=== PATIENT | male | born 1940 | race Caucasian/White ===

== ENCOUNTER → 2016-10-27 | Outpatient (CLI) | payer OTHER ==
[~2016-10-27] MED LIST: AMLO10TA2 PO; ASPI1TAB PO; ATOR1TAB21 PO; COLA100C5 PO; D-CA1KIT XX; GABA-282 PO; LOSA25TA8 PO; OXYC1TAB16 PO
--- NOTE | 2016-10-27 08:45 | REP ---
CT LUMBAR SPINE WITHOUT CONTRAST: HISTORY: Right leg pain. COMPARISON: MR 09/30/2016. There is no disc bulge or herniation at the L1-2 level. The L1 nerves exit the neural foramina without compression. A diffuse disc bulge is present at the L2-3 level. There is minimal compression of the thecal sac. The L2 nerves exit the neural foramina without compression. A diffuse disc bulge is present at the L3-4 level. There is hypertrophy of the ligamenta flava and posterior articulating facets. These findings produce minimal central canal stenosis. The L3 nerves exit the neural foramina without compression. A diffuse disc bulge is present at the L4-5 level. There is hypertrophy of the ligamenta flava and posterior articulating facets. These findings produce mild central canal stenosis. The L4 nerves exit the neural foramina without compression. A diffuse disc bulge and mild size right paracentral disc extrusion are present at the L5-S1 level. There is inferior migration of disc material. There is mild compression of the thecal sac and right S1 nerve as it exits the thecal sac and in the right S1 lateral recess. There are 2 mm of retrolisthesis of L5 on S1. There is hypertrophy of the posterior articulating facets. There is compression of the left L5 nerve in the neural foramen. The right L5 nerve exits the neural foramen without compression. The L4-5 and L5-S1 intervertebral discs are decreased in height. Vacuum phenomenon is present. These findings are consistent with disc degeneration. IMPRESSION: 1. Diffuse disc bulge at the L2-3 level with minimal thecal sac compression. 2. Minimal central canal stenosis at the L3-4 level secondary to disc bulge, ligamentous and facet hypertrophy. 3. Mild central canal stenosis at the L4-5 level secondary to disc bulge, ligamentous and facet hypertrophy. 4. Diffuse disc bulge and mild size right paracentral disc extrusion at the L5-S1 level with mild compression of the thecal sac and right S1 nerve as it exits the thecal sac and in the right S1 lateral recess. There is compression of the left L5 nerve in the neural foramen. Signed by Ming Goode MD 10/27/2016 08:56 A
== END ==
LOC: M RAD 07:06 → M ICU 10-28 21:09 → M RAD 10-28 21:09
PROVIDERS: ATTEND Neurological Surgery
DX: M79.604 Pain in right leg (principal); M54.16 Radiculopathy, lumbar region; M51.26 Other intervertebral disc displacement, lumbar region; M51.27 Other intervertebral disc displacement, lumbosacral region; M12.88 Other specific arthropathies, not elsewhere classified, other specified site

== ENCOUNTER 2016-10-28 06:20 | Inpatient (IN) | payer OTHER, MEDICARE ==
[2016-10-28] VITALS (9 sets, daily range): BP systolic 166–197; BP diastolic 88–106; O2SAT 95
[~2016-10-28] VITALS: Ht 175.3 cm; Wt 90.6 kg
[~2016-10-28 06:20] MED LIST changes: -AMLO10TA2 PO; -COLA100C5 PO; -D-CA1KIT XX
[2016-10-28] MEDS ORDERED: fentaNYL 250 MCG/5 ML INJECTION (J3010) As Ordered ONE (07:17)
[2016-10-28] MEDS ORDERED: PROPOFOL 200 MG/20 ML VIAL As Ordered ONE ×3 (07:17→18:19)
[2016-10-28] MEDS ORDERED: LIDOCAINE 2% INJ 100 MG/5 ML SDV (FOR ANES.) As Ordered ONE (07:17)
[2016-10-28] MEDS ORDERED: ROCURONIUM BROMIDE 50 MG/5 ML VIAL/SYRINGE As Ordered ONE ×2 (07:17→13:18)
[2016-10-28] MEDS ORDERED: MIDAZOLAM INJ 2 MG/2 ML VIAL (J2250) As Ordered ONE (07:18)
[2016-10-28] MEDS ORDERED: LR 1,000 ML IV ONE (07:45)
[2016-10-28] MEDS ORDERED: TRANEXAMIC ACID 100 MG/ML 10ML VIAL As Ordered ONE (07:58)
[2016-10-28] MEDS ORDERED: THROMBIN SOLN 20,000 UNITS KIT As Ordered ONE (07:58)
[2016-10-28] MEDS ORDERED: BACITRACIN PWD 50,000 UNITS VIAL As Ordered ONE ×3 (07:59→09:50)
[2016-10-28] MEDS ORDERED: HEPARIN SOD (PORCINE) 5000 UNITS/ML VIAL As Ordered ONE (07:59)
[2016-10-28] MEDS ORDERED: dexameTHASONE 4 MG/ML 1ML VIAL (J1100) As Ordered ONE ×2 (07:59→17:48)
[2016-10-28] MEDS ORDERED: ePHEDrine SULFATE 25 MG/5 ML(5MG/ML) SYRINGE As Ordered ONE (08:37)
[2016-10-28] MEDS ORDERED: GLYCOPYRROLATE INJ 0.2 MG/ML 2 ML VIAL As Ordered ONE ×2 (08:59→11:15)
[2016-10-28] MEDS ORDERED: PHENYLEPHRINE INJ 10MG/ML VIAL (J2370) As Ordered ONE (09:16)
[2016-10-28] MEDS ORDERED: ceFAZolin 1GM INJ (J0690) As Ordered ONE ×2 (09:50→17:42)
[2016-10-28] MEDS ORDERED: HYDROmorphone HCL 2 MG/ML 1ML VIAL (J1170) As Ordered ONE (11:15)
[2016-10-28] MEDS ORDERED: NEOSTIGMINE 1MG/ML 5 ML SYRINGE (J2710) As Ordered ONE (11:15)
[2016-10-28] MEDS ORDERED: REMIFENTANIL 1MG 3ML VIAL As Ordered ONE ×2 (11:31→15:52)
[2016-10-28] MEDS ORDERED: BUPIVACAINE LIPOSOME/PF 1.3% 20 ML VIAL (13.3MG/ML)(EXPAREL) As Ordered ONE (15:41)
[2016-10-28] MEDS ORDERED: BUPIVACAINE HCL 0.25% 30 ML VIAL As Ordered ONE (15:41)
[2016-10-28] MEDS ORDERED: PROPOFOL 500 MG/50 ML VIAL As Ordered ONE ×2 (16:32→17:29)
[2016-10-28] MEDS ORDERED: methylPREDNISolone SUSP 40 MG/ML (DEPO-medrol) VIAL (J1030) As Ordered ONE (17:46)
[2016-10-28] MEDS ORDERED: BACITRACIN OINT 30GM As Ordered ONE (18:50)
[2016-10-28] MEDS ORDERED: BACITRACIN OINT 30GM ONE (18:50)
[2016-10-28] MEDS ORDERED: ONDANSETRON 4MG/2ML VIAL (J2405) As Ordered ONE (18:50)
--- NOTE | 2016-10-28 19:51 | REP ---
C-ARM LUMBAR SPINE COMPLETE: 10/28/2016. Technique: Six views from intraoperative C-arm fluoroscopy provided to Dr. Masood coy off of the neurosurgery division are reviewed. Comparison: CT lumbar spine 10/27/2016. Findings: Pedicle screws and arch bars at L4, L5 and S1. Surgical drains overlie the posterior elements. Laminectomies at L4-L5 and L5-S1. Alignment essentially anatomic. Signed by Bin Hickman MD 10/29/2016 10:46 A
[2016-10-28] MEDS ORDERED: LR 1,000 ML IV SCH (20:00)
[2016-10-28] MEDS ORDERED: MEPERIDINE INJ 25 MG/ML VIAL (J2175) IV PRN (20:00)
[2016-10-28] MEDS ORDERED: ONDANSETRON 4MG/2ML VIAL (J2405) IV PRN (20:00)
[2016-10-28] MEDS ORDERED: METOCLOPRAMIDE INJ 10MG/2ML VIAL (J2765) IV PRN (20:00)
[2016-10-28] MEDS ORDERED: PERCOCET 5MG/325MG TAB PO PRN (20:00)
[2016-10-28] MEDS: fentaNYL 100 MCG/2 ML INJECTION (J3010) IV PRN ×4 (20:28→20:59)
[2016-10-28] MEDS ORDERED: LOSARTAN 25 MG TAB PO ONE (20:30)
--- NOTE | 2016-10-28 20:46 | CR.PDOC ---
[facility] Consultation Consultation DATE OF CONSULTATION: 10/28/2016 REFERRING PROVIDER: Dr. Hastings ATTENDING PHYSICIAN: Dr. Hastings REASON FOR CONSULTATION/CHIEF COMPLAINT: Presented to the hospital for an elective right lumbar decompression surgery with fusion of L5 and S1 Hospitalist team called for medical management; specifically hypertension HISTORY OF PRESENT ILLNESS: Patient is a 76 year old male with a PMHx of HTN, DLP, Testicular CA s/p chemotherapy and surgery (1997), and carotid endarterectomy (2007) who presented to [facility] for an elective right lumbar decompression surgery with L5-S1 fusion with Neurosurgery. Patients has provided details for his history. She has noted that the patient has been having right foot pain and right calf pain that was continuous and persistent for months. He received a workup for possible DVT as an outpatient and was negative. 3 weeks ago he was having back pain and had imaging completed. After this point he was advised to have a surgery performed by neurosurgery. Hospitalist team was consulted for medical management, specifically of his blood pressure. Patient was seen in the PACU after surgical procedure. He noted that he had some back pain, rated at a 3/10. No focal weakness of his extremities was noted. He notes that his blood pressure outside the hospital has been around 150-160s. Upon arrival to the hospital his blood pressure was 175/82, after the procedure was 190/105 and currently it is at 176/69. He has noted that he only takes Losartan for blood pressure control. Has not taken that medication today. He denies any chest pain, shortness of breath, cough, fever, chills, abdominal pain, nausea, vomiting, diarrhea, constipation or urinary symptoms. ALLERGIES: Please see below. HOME MEDICATIONS: Please see below. PAST MEDICAL HISTORY: Testicular Cancer (1987) s/p chemotherapy and surgery HTN DLP PAST SURGICAL HISTORY: Carotid Artery Stenosis s/p endarterectomy (2007) Bilateral cataract surgery (2015) FAMILY HISTORY: - Non-contributory - Strong family history of malignancy SOCIAL HISTORY: - Denies the use of illicit drugs; Drinks alcohol socially, Smokes cigars occasionally - Denies recent travel or sick contacts - Lives with for 51 years - Occupation; Retired maintenance REVIEW OF SYSTEMS: Constitutional: Denies weight loss, change in appetite, or recent trauma Eyes: No visual changes or eye pain Ears, Nose, Throat: Denies nose bleeds, or difficulty swallowing Cardiovascular: Denies chest pain, sweating, or orthopnea Respiratory: Denies cough, wheezing, or shortness of breath GI: Chuy nausea, vomiting, abdominal pain, diarrhea or constipation : Denies pain with urination or frequency Musculoskeletal: Denies joint pain or swelling Neuro / Psych: Denies muscle weakness or sensory loss Skin: No skin rashes noted All other review of systems negative; otherwise stated in history of present illness Screening: - Colonoscopy done 5-[address] [facility] was reported normal PHYSICAL EXAMINATION: - Vitals: BP 190/105, HR 99, RR 20, Sat 94%RA, Temp 97.5F - General: Lying in bed, No acute distress, Speaking in full sentences, Sleepy, AAOx3 - HEENT: NC, AT - CVS: RRR, +S1S2 - Lungs: Fair air entry bilaterally, No wheezing / rales / rhonchi appreciated - Abdomen: Soft, Non-distended, Non-tender, + Bowel sounds x 4 - Extremities: + PPx4, No lower extremity edema, No calf tenderness - Neuro: No focal motor or sensory deficit - Skin: No visible rashes LABORATORY DATA: Please see below. ASSESSMENT/PLAN: Elective right lumbar decompression surgery with fusion of L5 and S1 - Presented for elective procedure - Pain control and DVT prophylaxis by primary team HTN - Poorly controlled at this time, reports that he has not taken home med this morning - Has noted that his blood pressure as an outpatient has been in 160s - Will restart Losartan 25 (home dose) now; if still elevated will need to increase dose or add second agent - Will re-evaluate within 24 hours DLP - c/w Atorvastatin Testicular CA - Completed chemotherapy and surgery (1997) Carotid endarterectomy (2007) - No aspirin as per primary team DVT prophylaxis - At the discretion of primary team; has been put on SCDs only at this time Vital Signs/I&O Vital Signs Date Time Temp Pulse Resp B/P (MAP) Pulse Ox O2 Delivery O2 Flow Rate FiO2 10/28/16 19:55 84 20 190/105 (133) 99 Non-Rebreather 10 10/28/16 19:38 97.5 Allergies Coded Allergies: No Known Allergies (Unverified , 10/28/16) Home Medications Scheduled Aspirin (Aspirin 81) 81 Mg Tab, 81 MG PO DAILY, #30 (Reported) Atorvastatin Calcium (Atorvastatin Calcium) 20 Mg Tab, 20 MG PO DAILY, (Reported ) Gabapentin (Gabapentin) 300 Mg Cap, 300 MG PO TID, (Reported) Losartan Potassium (Losartan Potassium) 25 Mg Tab, 25 MG PO DAILY, (Reported) Scheduled PRN (Oxycodone/Acetaminophen 10-325 mg) 1 Tab Tab, 1 TAB PO Q8HP PRN for PAIN, ( Reported) DUSTIN TROY MD Oct 28, 2016 20:46
[2016-10-28] MEDS ORDERED: [UNRECOGNIZED DRUG - REMARK] XX SCH (21:00)
[2016-10-28] MEDS: ONDANSETRON 4MG/2ML VIAL (J2405) IV SCH (22:00)
[2016-10-28] MEDS: MORPHINE 4 MG/ML 1ML SYRINGE IV PRN (22:53)
[2016-10-28] MEDS: KCL 20MEQ in NS 1000ML 1,000 ML IV SCH (22:54)
[2016-10-28] MEDS: GABAPENTIN 300 MG CAP PO SCH (22:55)
[2016-10-29] VITALS (8 sets, daily range): BP systolic 144–178; BP diastolic 71–91
[2016-10-29] MEDS: ACETAMINOPHEN TAB 650MG DOSE (2X325MG) PO SCH ×5 (01:30→23:33)
[2016-10-29] MEDS: KCL 20MEQ in NS 1000ML 1,000 ML IV SCH (01:31)
[2016-10-29] MEDS: ceFAZolin SOD 1 GM in D5W MINI-BAG PLUS 50 ML IV SCH ×3 (01:31→18:01)
[2016-10-29 04:43] LABS: MEAN CORPUSCULAR HEMOGLOBIN 30.2 pg (27.0-33.0); MEAN CORPUSCULAR HGB CONC 32.9 g/dl (32.0-36.5); MEAN CORPUSCULAR VOLUME 91.8 fl (80.0-96.0); RED CELL DISTRIBUTION WIDTH 13.1 % (11.5-14.5); WHITE BLOOD COUNT 15.8 K/mm3 (4.0-10.0)
[2016-10-29 05:03] LABS: ALBUMIN 2.7 GM/DL (3.2-5.2); ALBUMIN/GLOBULIN RATIO 0.69 (1.00-1.93); BILIRUBIN,TOTAL 0.4 MG/DL (0.2-1.0); CALCIUM LEVEL 8.3 MG/DL (8.8-10.2); CREATININE FOR GFR 1.33 MG/DL (0.70-1.30); GLOMERULAR FILTRATION RATE 55.7 (>42); POTASSIUM SERUM 4.6 MEQ/L (3.5-5.1); TOTAL PROTEIN 6.6 GM/DL (6.4-8.2)
[2016-10-29] MEDS: ONDANSETRON 4MG/2ML VIAL (J2405) IV SCH ×3 (06:00→21:40)
[2016-10-29] MEDS: MORPHINE 4 MG/ML 1ML SYRINGE IV PRN (08:07)
[2016-10-29] MEDS: hydrALAZINE INJ 20 MG/ML VIAL IV SCH ×3 (08:54→23:31)
[2016-10-29] MEDS: amLODIPine 10 MG TAB PO SCH (10:03)
[2016-10-29] MEDS: DOCUSATE SODIUM 100 MG CAP PO SCH ×2 (10:03→21:39)
[2016-10-29] MEDS: GABAPENTIN 300 MG CAP PO SCH ×3 (10:03→21:39)
[2016-10-29] MEDS: LOSARTAN 25 MG TAB PO SCH (10:04)
[2016-10-29] MEDS: ATORVASTATIN 20 MG TAB PO SCH (10:04)
--- NOTE | 2016-10-29 10:09 | REP ---
CT LUMBAR SPINE WITHOUT CONTRAST: HISTORY: Decompression. COMPARISON: 10/27/2016. There is no disc bulge or herniation at the L1-2 level. The L1 nerves exit the neural foramina without compression. A diffuse disc bulge is present at the L2-3 level. There is minimal compression of the thecal sac. The L2 nerves exit the neural foramina without compression. A diffuse disc bulge is present at the L3-4 level. There is minimal compression of the thecal sac. There is hypertrophy of the posterior articulating facets. The L3 nerves exit the neural foramina without compression. The patient is status post laminectomy and partial facetectomy. The patient is status post L4-S1 anterior and posterior spinal fusion and L4-5 laminectomy and partial facetectomy. Bone graft material is present anteriorly and metal comfort, pedicle screws and bone graft material posteriorly. A diffuse disc bulge is present at the L4-5 level. There is minimal compression of the thecal sac. There is hypertrophy of the posterior articulating facets. The L4 nerves exit the neural foramina without compression. A diffuse disc bulge is present at the L5-S1 level. The previously noted right paracentral disc extrusion is not seen. There is minimal compression of the thecal sac. There is hypertrophy of the posterior articulating facets. There is compression of the left L5 nerve in the neural foramen. The right L5 nerve exits the neural foramen without compression. The L4-5 and L5-S1 intervertebral discs are decreased in height consistent with disc degeneration. There is no subluxation. Drainage tubing and a small amount of subcutaneous air are present at the laminectomy site and in the posterior paravertebral soft tissue. IMPRESSION: 1. Diffuse disc bulges at the L2-3 and L3-4 levels with minimal thecal sac compression. 2. The patient is status post L4-S1 anterior and posterior spinal fusion and L3-5 laminectomy and partial facetectomy. There is anatomic alignment of the lumbar spine. Signed by Ming Goode MD 10/29/2016 10:11 A
[2016-10-29] MEDS: PERCOCET 5MG/325MG TAB PO PRN (10:54)
--- NOTE | 2016-10-29 11:32 | IPNPDOC ---
Subjective Date Seen The patient was seen on 10/29/16. Subjective Chief Complaint/HPI Patient seen and examined at the bedside. States that his surgery went relatively well, but does note that he has some pain this morning and has yet to receive his pain medications. Denies any acute complaints otherwise. Objective Physical Examination General Exam: Positive: Alert, Cooperative, No Acute Distress ENT Exam: Positive: Atraumatic, Mucous membr. moist/pink Neck Exam: Negative: JVD Chest Exam: Positive: Clear to auscultation, Normal air movement Heart Exam: Positive: Rate Normal, Normal S1, Normal S2 Abdomen Exam: Positive: Soft, Negative: Tenderness Extremity Exam: Positive: Other (5 out of 5 strength on flexion and extension at the shoulder, elbow, knee, and ankle joints. Sensation intact in extremities. ) Psych Exam: Positive: Oriented x 3 Assessment /Plan Plan/VTE VTE Prophylaxis Ordered?: Yes Plan Rght lumbar decompression surgery with fusion of L5 and S1 POD #1 DVT prophylaxis by primary team HTN Patient noted to be hypertensive once again this morning May be a combination of pain, and uncontrolled underlying B/P We have added Norvasc 10mg daily, and IV Hydralazine prn Continue Losartan 25 milligrams daily We will cont to monitor B/P readings and adjust regimen accordingly Possible Underlying CKD? Serum Creatinine here noted to be 1.33 (Baseline unknown) Will obtain records from PCP History of neuropathy Continue gabapentin DLP Cont Atorvastatin Testicular CA Status post chemotherapy and surgery in (1997) Carotid endarterectomy (2007) No aspirin as per primary team DVT prophylaxis Currently on SCDs Anticoagulation for DVT prophylaxis as per primary team VS, I&O, 24H, Fishbone Vital Signs/I&O Vital Signs Date Time Temp Pulse Resp B/P (MAP) Pulse Ox O2 Delivery O2 Flow Rate FiO2 10/29/16 10:54 82 18 160/78 Room Air 10/29/16 08:20 92 10/29/16 08:07 98.7 10/29/16 00:00 2.0 I&O- Last 24 Hours up to 6 AM 10/29/16 05:59 Intake Total 5000 ml Output Total 3165 ml Balance 1835 ml Laboratory Data 24H LABS Laboratory Tests 2 10/29/16 04:17: Anion Gap 7L, Glomerular Filtration Rate 55.7, Blood Urea Nitrogen 19H, Creatinine 1.33H, Sodium Level 139, Potassium Level 4.6, Chloride Level 106, Carbon Dioxide Level 26, Calcium Level 8.3L, Aspartate Amino Transf (AST/SGOT) 40H, Alanine Aminotransferase (ALT/SGPT) 18, Alkaline Phosphatase 47, Total Bilirubin 0.4, Total Protein 6.6, Albumin 2.7L, Albumin/Globulin Ratio 0.69L CBC/BMP Laboratory Tests 10/29/16 04:17 Red Blood Count 4.86, Mean Corpuscular Volume 91.8, Mean Corpuscular Hemoglobin 30.2, Mean Corpuscular Hemoglobin Concent 32.9, Red Cell Distribution Width 13.1 , Calcium Level 8.3 L, Aspartate Amino Transf (AST/SGOT) 40 H, Alanine Aminotransferase (ALT/SGPT) 18, Alkaline Phosphatase 47, Total Bilirubin 0.4, Total Protein 6.6, Albumin 2.7 L ROBER DASILVA MD Oct 29, 2016 11:32
--- NOTE | 2016-10-29 20:51 | ROOPDOC ---
[facility] Report Of Operation Report of Operation DATE OF SURGERY: 10/28/2016 SURGEON: Dr. Jorge Alberto Hastings MODELING MANAGER: Dr. Mai Davison PREOPERATIVE DIAGNOSIS: Intractable right leg pain, L4-L5-S1 Degenerative disc disease, bilateral multilevel facet hypertrophy and L4-L5-S1 bilateral foraminal stenosis POSTOPERATIVE DIAGNOSIS: Same PROCEDURE PERFORMED: 1. Laminactomy L4, L5, S1. 2. Bilateral complete facetectomy L4-5 and L5-S1 for posterolateral decompression on right and left side 3. Instrumented posterior spinal fusion L4 through S1 with Medicrea polyaxial titanium pedicle screws. 4. Total disc excision with end plate for fusion at L5-S1 and L4-5. 5. Intervertebral disc replacement L5-S1 and L4-[address] image-guided, computer assisted stereotactic L4-L5-S1 pedicle screws placement and posterior instrumentation with rods. 7. Onlay bone graft for posterolateral fusion, use of allograft/autograft bone. 8. lntraoperative use of C-arm fluoroscopy. ANESTHESIA: GETA + Local. ESTIMATED BLOOD LOSS: 600 cc. FINDINGS : Severe foraminal stenosis on right side at L5 and S1 level with dilated epidural veins DRAINS: LINDA drain x 3 COMPLICATIONS: None. DISPOSITION: Stable to the PACU. INDICATIONS FOR THE PROCEDURE HISTORY: Ms. Solano is a 55 y/o female with past medical history of obstructive sleep apnea, dyslipidemia, asthma, constipation who presents to the emergency department today with a two-week history of blurred vision and increasing bitemporal headache, that is worsened with bright lights and standing up, she prefers to be laying down flat in bed. The patient has undergone spine surgery in June 2016 for decompression of L4-L5, removal of interspinous fixation device, and undoing fusion at L4-L5, lysis of scar tissue and partial facet arthrotomies on the right from L3-L4, L4-5 and L5-S1. The patient declare also a discharge of clear transparent fluid from her postoperative scar. 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 Given the progression of the symptoms and the risk of CSF infection, the patient decided to proceed with reoperation, requiring laminectomy and decompression of the L4-5, dural tear repair and instrumented fusion . SURGICAL RISKS: The patient and his family were well apprised of all objectives, benefits, risks and potential complications of the procedure, including but not limited to : worsening of current status, the possible need for further procedures, the risk of infection, headaches, CSF leak, possible spinal nerve injury resulting in paralysis, infection, injury to major vessels causing hemorrhage, stroke, loss of language function, coma and even . No assurance was given whether symptoms would improve following the procedure. The surgery is technically difficult procedure and despite the significant discomfort for the patient and the best effort of the physician, the surgery may be unsuccessful or may need to be aborted. Informed consent was obtained and secured in the chart after the patient and family voiced understanding of these risks and decided to proceed with the operation. DESCRIPTION OF THE PROCEDURE The patient was transferred to the operating room. He was given preoperative prophylactic IV antibiotics. ANESTHESIA: The patient was sedated and intubated without difficulty by the anesthesia service. He underwent vascular cannulization in accordance with Anesthesia protocol. Eyes were taped shut after ointment was applied to prevent corneal abrasion. A Bates catheter was inserted. POSITIONING: The patient was turned into the prone position on the Juliano table. Arms were positioned 90/90 on the arm boards. Bolsters were used to support the chest and pelvis and pillows for hips, knees and ankles. All pressure points were carefully padded. A Bg Hugger was placed over the upper body to maintain control of core body temperature. The patient underwent a 70% alcohol prep. X-ray was used to delineate the extend of excision. OPERATIVE TECHNIQUE: The patient was prepped and draped in the standard sterile fashion. The skin was subsequently opened sharply with a # 15 scalpel blade and posterior midline incision was created. Electrocautery was used for hemostasis and soft tissue was dissected down to fascia. Fascia was incised longitudinally on either side of the spinous processes and subperiosteal paraspinal muscle dissection was carried out, exposing from L4 to S2 down superiorly and inferiorly in the midline to expose supraspinous ligament and laminas. Hemostasis was achieved. Self-retaining retractors were then inserted. Stereotactic CT scan of L-spine was done prior to the surgery and the images were transferred to the neuronavigational system. Next, three-dimensional images were reconstructed. The patient underwent co-registration of the preoperative stereotactic CT with her surface landmarks by FluroNav technique with use of C-arm fluoroscopy with Doculynx tracker. Accuracy was within 2mm. Next laminectomies were performed, removing all of spinal process and medial third of the lamina of L4, L5 and S1. The decompression was carried out in a posterolateral fashion on both right and left sides at L4-5 and L5-S1. At each side and level of posterolateral decompression all parts of the following structures were removed: lateral 2/3 of the lamina, inferior articulate process, superior articulate process and a portion of the base of the pedicle. Decompressive facetectomy of the neural foramena L4-5 and L5-S1on both the left and right side was performed with ultrasound bone dissector to relieve nerve root compression. A note was made of bluish color, congested L5 and S1 root on right after foraminal decompression. Removed bone has been harvested, cleaned from ligaments and scar and milled with allograft. The neuronavigational probe was utilized to plan spray pilot holes and screws trajectories. The L3-S1 vertebrae were again confirmed with fluoroscopy. At the L4, L5, S1 level bilaterally, under computer image guidance system, spray pilot holes were drilled and the straight pedicle probe passed into the pedicles and body of L4, L5 and S1 vertebrae bilaterally and the resulting hole checked with a flexible pedicle sound to ensure a bony rim around the hole. Using an inside out technique with direct visualization of the medical and inferomedial borders of the pedicle, an instrumented posterior spinal fusion was performed from L4 to S1. A sharp awl was placed into the remaining of the base of pedicle and awls were sequentualy passed through the pedicle and into the body. Each hole was probed, sized, tapped and deemed to be intact. Medicrea polyaxial screw was placed into the pedicles and vertebral bodies under neuronavigation guidance bilaterally at L4, L5 and S1 vertebrae. Proper placement and trajectory were confirmed with intraoperative fluoroscopic x-ray. All were deemed to be acceptable. Next using an axillary approach between the exiting and traversing nerve roots , a total disc excisions with end plate for fusion were performed at L4-5 and L5 -S1. At both L4-5 and L5-S1, bipolar electrocautery was used to control epidural bleeding and the disc was exposed. Iatrogenic annulotomy was created. Using K2M set disc nevaeh were inserted sequentially and to the point where there was end plate. Intervertebral disk replacement was performed at L4-5 and L5-S1. At L4-5 and L5-S1 morcellized cancellous allograft was inserted using impaction grafting technique. We measured the inter-screw distance and used two prebend 5.5 mm Medicrea rods and placed the rods into the polyaxial screws from L4- S1. All set screws were final tightened. The wound was copiously irrigated with antibiotic saline solution. The high- speed pneumatic drill was utilized to decorticate the bone laterally for lateral arthrodesis. These recesses were filled with auto and allograft bone chips as onlay graft in decorticated gutters for posterolateral fusion. Paraspinal muscles and subcutaneous tissue of the wound were infiltrated by 20 ml of Exparel. 3 drains was placed and brought out through a separate stab incision. The paraspinal muscles were subsequently closed utilizing interrupted 0.0 polyglactin synthetic absorbable suture (Vicryl). Fascia was closed by 0.0 Stratafix surure. Subcutaneous tissue and skin was approximated with 2.0 Stratafix suture. The skin was then closed with Ethicon wound closure system. Drains were secured to skin by 2.0 silk suture. The drain incision was covered by Bacitracine ointment and was dressed in a clean dry dressing. All sponge counts, needle counts and instrument counts were correct at the end of the case times two. The patient tolerated the procedure well, without any complications and was transferred in stable condition to the recovery room. JORGE ALBERTO HASTINGS MD Oct 29, 2016 20:51
[2016-10-29] MEDS ORDERED: CALCIUM CARBONATE 500 MG CHEW U/D PO PRN (21:30)
[2016-10-29] MEDS: zolPIDEM TARTRATE 5 MG TAB PO PRN (23:31)
[2016-10-30] VITALS: BP 166/86
[2016-10-30 04:00] VITALS: BP 150/67
[2016-10-30 04:52] LABS: MEAN CORPUSCULAR HGB CONC 33.2 g/dl (32.0-36.5); MEAN CORPUSCULAR VOLUME 93.2 fl (80.0-96.0); RED CELL DISTRIBUTION WIDTH 13.1 % (11.5-14.5); WHITE BLOOD COUNT 12.4 K/mm3 (4.0-10.0)
[2016-10-30] MEDS: ONDANSETRON 4MG/2ML VIAL (J2405) IV SCH ×2 (05:05→14:00)
[2016-10-30] MEDS: ACETAMINOPHEN TAB 650MG DOSE (2X325MG) PO SCH ×3 (05:05→17:49)
[2016-10-30 05:12] LABS: ALBUMIN 2.6 GM/DL (3.2-5.2); ALBUMIN/GLOBULIN RATIO 0.74 (1.00-1.93); ALKALINE PHOSPHATASE 43 U/L (45-117); ALT/SGPT 17 U/L (12-78); ANION GAP 3 MEQ/L (8-16); AST/SGOT 55 U/L (15-37); BILIRUBIN,TOTAL 0.4 MG/DL (0.2-1.0); BLOOD UREA NITROGEN 19 MG/DL (7-18); CALCIUM LEVEL 8.4 MG/DL (8.8-10.2); CARBON DIOXIDE LEVEL 31 MEQ/L (21-32); CHLORIDE LEVEL 105 MEQ/L (98-107); GLOMERULAR FILTRATION RATE > 60.0 (>42); GLUCOSE, FASTING 120 MG/DL (83-110); POTASSIUM SERUM 4.2 MEQ/L (3.5-5.1); SODIUM LEVEL 139 MEQ/L (136-145); TOTAL PROTEIN 6.1 GM/DL (6.4-8.2)
[2016-10-30 08:00] VITALS: BP 142/72
[2016-10-30] MEDS: hydrALAZINE INJ 20 MG/ML VIAL IV SCH (08:00)
[2016-10-30] MEDS ORDERED: GLUCAGON FOR INJ 1 MG VIAL (J1610) SC PRN (08:45)
[2016-10-30] MEDS ORDERED: GLUCOSE 4 GM CHEW TABLET PO PRN (08:45)
[2016-10-30] MEDS ORDERED: MOM 30ML SUSPENSION UDC PO PRN (08:45)
[2016-10-30] MEDS ORDERED: DEXTROSE 50% 50 ML SYRINGE IV PRN (08:45)
[2016-10-30] MEDS: LOSARTAN 25 MG TAB PO SCH (09:56)
[2016-10-30] MEDS: ATORVASTATIN 20 MG TAB PO SCH (09:56)
[2016-10-30] MEDS: amLODIPine 10 MG TAB PO SCH (09:56)
[2016-10-30] MEDS: DOCUSATE SODIUM 100 MG CAP PO SCH ×2 (09:56→20:05)
[2016-10-30] MEDS: GABAPENTIN 300 MG CAP PO SCH ×3 (09:57→20:03)
[2016-10-30 12:00] VITALS: BP 142/69
[2016-10-30] MEDS: PERCOCET 5MG/325MG TAB PO PRN ×2 (12:26→20:05)
[2016-10-30] MEDS: HumaLOG INSULIN (NovoLOG) PER UNIT SC SCH ×3 (12:39→20:06)
--- NOTE | 2016-10-30 13:39 | IPNPDOC ---
Text Note Date of Service The patient was seen on 10/30/16. NOTE Subjective: Patient is a 76 year old male with a PMHx of HTN, DLP, Testicular CA s/p chemotherapy and surgery (1997), and carotid endarterectomy (2007) who presented to [facility] for an elective right lumbar decompression surgery with L5-S1 fusion with Neurosurgery. Hospitalist team was called for medical managment of his hypertension. I was called today by Dr. Hastings about the patient's uncontrolled blood sugar of 120 and suggested having glucose checks and starting insulin. Patient was seen and examined at the bedside. Currently he has no complaints. Objective: Vitals (See below) General: Lying in bed, no acute distress, comfortable, AAOx3 HEENT: NC, AT CVS: RRR, +S1S2 Lungs: Fair air entry b/l, -w/r/r Abdomen: Soft, ND, NT, +BSx4 Extremities: - Edema, - Calf tenderness Assessment and plan: 1. Elective right lumbar decompression surgery with fusion of L5 and S1 - POD#2 - Presented for elective procedure - Pain control and DVT prophylaxis by primary team 2. HTN - BP well controlled at this time - c/w Amlodipine 10 and Losartan 25 3. New onset DM2 - A1c of 6.6% - Advised consistent carbohydrate diet - Will start ISS while inpatient - Will recommend life style changes upon discharge 4. CKD3 - Cr currently at 1.2; down from 1.3 from admission - Cr baseline of 1.2 based on outpatient records 5. DLP - c/w Atorvastatin 6. Testicular CA - Completed chemotherapy and surgery (1997) 7. Carotid endarterectomy (2007) - No aspirin as per primary team 8. DVT prophylaxis - c/w SCDs; anticoagulation by primary team VS,Alejandrobone, I+O VS, Fishbone, I+O Laboratory Tests 10/30/16 04:18 Red Blood Count 4.24 L, Mean Corpuscular Volume 93.2, Mean Corpuscular Hemoglobin 31.0, Mean Corpuscular Hemoglobin Concent 33.2, Red Cell Distribution Width 13.1, Calcium Level 8.4 L, Aspartate Amino Transf (AST/SGOT) 55 H, Alanine Aminotransferase (ALT/SGPT) 17, Alkaline Phosphatase 43 L, Total Bilirubin 0.4, Total Protein 6.1 L, Albumin 2.6 L Vital Signs Date Time Temp Pulse Resp B/P (MAP) Pulse Ox O2 Delivery O2 Flow Rate FiO2 10/30/16 12:56 20 10/30/16 09:56 89 142/72 10/30/16 08:00 98.2 94 Room Air 10/29/16 00:00 2.0 I&O- Last 24 Hours up to 6 AM 10/30/16 06:00 Intake Total 3166 ml Output Total 3715 ml Balance -549 ml DUSTIN TROY MD Oct 30, 2016 13:39
[2016-10-30] MEDS ORDERED: SLF 3 ML SYR IV PRN (14:30)
[2016-10-30] MEDS: SLF 3 ML SYR IV SCH (20:06)
[2016-10-30 22:00] VITALS: BP 150/73
[2016-10-31] MEDS: PERCOCET 5MG/325MG TAB PO PRN ×3 (00:46→18:50)
[2016-10-31] MEDS: MORPHINE 4 MG/ML 1ML SYRINGE IV PRN (03:55)
[2016-10-31] MEDS: SLF 3 ML SYR IV SCH ×4 (03:56→20:43)
[2016-10-31 06:00] VITALS: BP 129/67
[2016-10-31 06:56] LABS: MEAN CORPUSCULAR HEMOGLOBIN 31.2 pg (27.0-33.0); RED CELL DISTRIBUTION WIDTH 13.2 % (11.5-14.5); WHITE BLOOD COUNT 8.3 K/mm3 (4.0-10.0)
[2016-10-31 07:12] LABS: ALBUMIN 2.7 GM/DL (3.2-5.2); ALBUMIN/GLOBULIN RATIO 0.87 (1.00-1.93); ALKALINE PHOSPHATASE 46 U/L (45-117); ALT/SGPT 20 U/L (12-78); ANION GAP 7 MEQ/L (8-16); AST/SGOT 53 U/L (15-37); BILIRUBIN,TOTAL 0.5 MG/DL (0.2-1.0); BLOOD UREA NITROGEN 16 MG/DL (7-18); CARBON DIOXIDE LEVEL 28 MEQ/L (21-32); CHLORIDE LEVEL 104 MEQ/L (98-107); CREATININE FOR GFR 1.07 MG/DL (0.70-1.30); GLOMERULAR FILTRATION RATE > 60.0 (>42); GLUCOSE, FASTING 123 MG/DL (83-110); POTASSIUM SERUM 3.9 MEQ/L (3.5-5.1); SODIUM LEVEL 139 MEQ/L (136-145); TOTAL PROTEIN 5.8 GM/DL (6.4-8.2)
[2016-10-31] MEDS: amLODIPine 10 MG TAB PO SCH (09:04)
[2016-10-31] MEDS: GABAPENTIN 300 MG CAP PO SCH ×3 (09:04→20:40)
[2016-10-31] MEDS: ATORVASTATIN 20 MG TAB PO SCH (09:04)
[2016-10-31] MEDS: LOSARTAN 25 MG TAB PO SCH (09:05)
[2016-10-31] MEDS: HumaLOG INSULIN (NovoLOG) PER UNIT SC SCH ×4 (09:05→20:43)
[2016-10-31] MEDS: DOCUSATE SODIUM 100 MG CAP PO SCH ×2 (09:05→20:40)
--- NOTE | 2016-10-31 13:50 | IPNPDOC ---
Text Note Date of Service The patient was seen on 10/31/16. NOTE Subjective: Patient is a 76 year old male with a PMHx of HTN, DLP, Testicular CA s/p chemotherapy and surgery (1997), and carotid endarterectomy (2007) who presented to [facility] for an elective right lumbar decompression surgery with L5-S1 fusion with Neurosurgery. Hospitalist team was called for medical managment of his hypertension. Patient was seen and examined at the bedside. Currently he has questions about removal of the LINDA drains, otherwise no new complaints. Objective: Vitals (See below) General: Lying in bed, no acute distress, comfortable, AAOx3 HEENT: NC, AT CVS: RRR, +S1S2 Lungs: Fair air entry b/l, -w/r/r Abdomen: Soft, ND, NT, +BSx4 Extremities: - Edema, - Calf tenderness Assessment and plan: 1. Elective right lumbar decompression surgery with fusion of L5 and S1 - POD#3 - Presented for elective procedure - Pain control and DVT prophylaxis by primary team 2. HTN - BP well controlled at this time - c/w Amlodipine 10 and Losartan 25 daily 3. New onset DM2 - A1c of 6.6% - Advised consistent carbohydrate diet - c/w ISS - Recommended life style changes; will try this as an outpatient 4. CKD3 - Cr baseline of 1.2 based on outpatient records - Cr currently at 1.2; down from 1.3 from admission - Cr better than baseline currently 5. DLP - c/w Atorvastatin 6. Testicular CA - Completed chemotherapy and surgery (1997) 7. Carotid endarterectomy (2007) - No aspirin as per primary team 8. DVT prophylaxis - c/w SCDs; anticoagulation by primary team VS,Ephraim, I+O VS, Ephraim, I+O Laboratory Tests 10/31/16 06:37 Red Blood Count 3.99 L, Mean Corpuscular Volume 92.0, Mean Corpuscular Hemoglobin 31.2, Mean Corpuscular Hemoglobin Concent 34.0, Red Cell Distribution Width 13.2, Calcium Level 8.0 L, Aspartate Amino Transf (AST/SGOT) 53 H, Alanine Aminotransferase (ALT/SGPT) 20, Alkaline Phosphatase 46, Total Bilirubin 0.5, Total Protein 5.8 L, Albumin 2.7 L Vital Signs Date Time Temp Pulse Resp B/P (MAP) Pulse Ox O2 Delivery O2 Flow Rate FiO2 10/31/16 09:05 129/67 10/31/16 09:04 78 10/31/16 06:00 98.4 18 93 Room Air 10/29/16 00:00 2.0 I&O- Last 24 Hours up to 6 AM 10/31/16 05:59 Intake Total 1680 ml Output Total 1730 ml Balance -50 ml DUSTIN TROY MD Oct 31, 2016 13:50
[2016-10-31] MEDS ORDERED: COLA100C5 PO (13:52)
[2016-10-31] MEDS ORDERED: AMLO10TA2 PO (13:52)
[2016-10-31 14:00] VITALS: BP 145/70
[2016-11-01] MEDS: PERCOCET 5MG/325MG TAB PO PRN ×4 (00:01→19:56)
[2016-11-01 06:00] VITALS: BP 138/80
[2016-11-01] MEDS: DOCUSATE SODIUM 100 MG CAP PO SCH ×2 (08:10→19:54)
[2016-11-01] MEDS: HumaLOG INSULIN (NovoLOG) PER UNIT SC SCH ×4 (08:10→21:00)
[2016-11-01] MEDS: ATORVASTATIN 20 MG TAB PO SCH (08:11)
[2016-11-01] MEDS: LOSARTAN 25 MG TAB PO SCH (08:11)
[2016-11-01] MEDS: GABAPENTIN 300 MG CAP PO SCH ×3 (08:11→19:54)
[2016-11-01] MEDS: amLODIPine 10 MG TAB PO SCH (08:11)
[2016-11-01] MEDS ORDERED: D-CA1KIT XX (10:19)
--- NOTE | 2016-11-01 10:20 | IPNPDOC ---
Text Note Date of Service The patient was seen on 11/01/16. NOTE Subjective: Patient is a 76 year old male with a PMHx of HTN, DLP, Testicular CA s/p chemotherapy and surgery (1997), and carotid endarterectomy (2007) who presented to [facility] for an elective right lumbar decompression surgery with L5-S1 fusion with Neurosurgery. Hospitalist team was called for medical management of his hypertension. Patient was seen and examined at the bedside. He notes that there is one LINDA drain left in place that has been draining. Neurosurgery will be in today to possibly remove it. Other than this, he has no new issues. Objective: Vitals (See below) General: Lying in bed, no acute distress, comfortable, AAOx3 HEENT: NC, AT CVS: +S1S2 Lungs: Fair air entry b/l, -w/r/r Abdomen: Soft, ND, NT, +BSx4 Extremities: - Edema, - Calf tenderness Assessment and plan: 1. Elective right lumbar decompression surgery with fusion of L5 and S1 - POD#4 - Presented for elective procedure - Pain control and DVT prophylaxis by primary team 2. HTN - BP well controlled at this time - c/w Amlodipine 10 and Losartan 25 daily 3. New onset DM2 - A1c of 6.6% - c/w ISS while inpatient - c/w consistent carbohydrate diet - As an outpatient he will try diet and exercise (life style changes) - Will give him diabetic teachings and provide him with Glucometer 4. CKD3 - Cr baseline of 1.2 based on outpatient records - Cr on admission of 1.3; has trended down 5. DLP - c/w Atorvastatin 6. Testicular CA - Completed chemotherapy and surgery (1997) 7. Carotid endarterectomy (2007) - No aspirin as per primary team 8. DVT prophylaxis - c/w SCDs; anticoagulation by primary team VS,Fishbone, I+O VS, Fishbone, I+O Vital Signs Date Time Temp Pulse Resp B/P (MAP) Pulse Ox O2 Delivery O2 Flow Rate FiO2 11/01/16 08:11 69 138/80 11/01/16 06:23 16 Room Air 11/01/16 06:00 98.3 92 10/29/16 00:00 2.0 I&O- Last 24 Hours up to 6 AM 11/01/16 05:59 Intake Total 1620 ml Output Total 1935 ml Balance -315 ml DUSTIN TROY MD Nov 01, 2016 10:19
[2016-11-01] MEDS: SLF 3 ML SYR IV SCH ×2 (11:43→19:56)
[2016-11-01 22:00] VITALS: BP 164/74
[2016-11-01] MEDS: zolPIDEM TARTRATE 5 MG TAB PO PRN (22:23)
[2016-11-02] MEDS: PERCOCET 5MG/325MG TAB PO PRN ×3 (03:21→15:03)
[2016-11-02] MEDS: SLF 3 ML SYR IV SCH (05:35)
[2016-11-02 06:00] VITALS: BP 156/81
[2016-11-02] MEDS: HumaLOG INSULIN (NovoLOG) PER UNIT SC SCH ×2 (07:30→12:00)
[2016-11-02 09:00] VITALS: BP 156/81
[2016-11-02] MEDS: amLODIPine 10 MG TAB PO SCH (09:00)
[2016-11-02] MEDS: DOCUSATE SODIUM 100 MG CAP PO SCH (09:00)
[2016-11-02] MEDS: LOSARTAN 25 MG TAB PO SCH (09:00)
[2016-11-02] MEDS: ATORVASTATIN 20 MG TAB PO SCH (09:00)
[2016-11-02] MEDS: GABAPENTIN 300 MG CAP PO SCH (09:00)
[2016-11-02] MEDS ORDERED: FLEET ENEMA PR ONE (10:00)
--- NOTE | 2016-11-02 10:59 | DS.PDOC ---
Discharge Summary General Date of Admission Oct 28, 2016 at 06:20 Date of Discharge 11/02/16 Attending Physician: JORGE ALBERTO HASTINGS MD Discharge Summary Nika Leiva PA-C, dictating discharge summary on behalf of Dr. Hastings. I had no verbal interaction with the patient. CONSULTATIONS: 1. Hospitalist for medical management. PROCEDURES PERFORMED DURING STAY: 1. 10/28/2016, by Dr. Hastings. Laminectomy L4-S1, bilateral facetectomy and decompression L4-S1, intervertebral disc replacement L4-5 and L5-S1, posterior instrumentation with screws and rods fusion at L4-5 and L5-S1 with bone graft. ADMITTING DIAGNOSES: 1. Intractable right leg pain DISCHARGE DIAGNOSES: 1. Fusion of spine, lumbar region L4-5 and L5-S1. 2. Right leg pain, improved. 3. Diabetes mellitus, type II CHIEF COMPLAINT: Right leg pain. HISTORY OF PRESENT ILLNESS: Mr. Robbins is a pleasant 76-year-old male with a history of hypertension, CK 83, dyslipidemia, and testicular cancer (s/p chemotherapy and surgery ') who had been referred to neurosurgery office on an urgent basis regarding his right leg pain. His right leg pain had started at the end of July and the pain gradually went up to his low back. His MRI lumbar shows a disc herniation with a free fragment inferiorly migrated with impingement of the right S1 nerve root with severe left foraminal narrowing and stenosis secondary to ligamentous and facet hypertrophy and disc bulge. He had denied any left leg symptoms. He was admitted to the hospital on 10/28/2016 and underwent surgery by Dr. Hastings on 10/28/16. HOSPITAL COURSE: Patient was admitted to ICU following surgery and had done well, therefore was transferred to the fifth floor. His hospital course has been uneventful. He denies any postop symptoms and has remained afebrile. No new focal motor deficits have been noted on exam. DISCHARGE MEDICATIONS: Please see below. ALLERGIES: Please see below LABORATORY DATA: Please see below. IMAGIN. 10/28/16, lumbar x-ray. Pedicle screws in arch bars at L4, L5, and S1. Surgical drains overlay the posterior elements. Laminectomies at L4-L5 and L5- S1. Alignment essentially anatomic. 2. 10/29/16, lumbar CT. Diffuse disc bulges at the L2-3 and L3-4 levels with minimal thecal sac compression. Patient is status post L4-S1 anterior and posterior spinal fusion and L3-5 laminectomy and partial facetectomy. There is anatomic alignment of the lumbar spine. Activity: Per PT recommendations. Diet: As tolerated. DISCHARGE PLAN: 1. Keep incision dry for at least 48 hours. 2. Keep incision clean and inspect daily for signs of infection (redness, discharge, swelling, increased pain, and warmth. 3. You may shower 48 hours after your surgery. Avoid bath tubs, hot tubs/ whirlpools, and swimming pools until cleared by surgeon or PA. 4. Do not apply lotions or creams near the incision site. 5. Start walking around the house as soon as possible. This helps to reduce swelling and lowers the chance of blood clots. 6. Continue to gradually increase physical activity. 7. Climbing stairs at home is permitted as tolerated with caution. If available use handrails and taken time going up and down the stairs pain close attention to place each foot on each step carefully. 8. No bending, twisting, pulling, pushing, or lifting greater than 5 pounds until follow-up in the office. 9. No strenuous activity for at least 2 weeks. 10. Get plenty of rest. 11. Follow-up balance diet and drink plenty of water. 12. Decreased activity and pain medications may promote constipation, so you may want to add more raw fruit to your diet. A mild [id number] stool softener or laxative may be used if necessary. 13. Take pain medication as prescribed. Pain medication will not remove all the pain, but will lessen it significantly. 14. Do not drink alcohol when taking pain medications. 15. Do not drive or operate any machinery until youre given specific instructions about driving when you follow-up in the office. 16. He is to call office to schedule follow-up appointment within 1-2 weeks or if any new signs or symptoms develop; [phone]. 17. He understands to call the office if any new questions arise. DISCHARGE CONDITION: Stable. TIME SPENT ON DISCHARGE: Greater than 45 minutes. Nika Leiva PA-C, dictating on behalf of Dr. Hastings Vital Signs/I&Os Vital Signs Date Time Temp Pulse Resp B/P (MAP) Pulse Ox O2 Delivery O2 Flow Rate FiO2 11/02/16 10:02 18 11/02/16 09:00 73 156/81 11/02/16 06:00 97.8 98 Room Air 10/29/16 00:00 2.0 I&O- Last 24 Hours up to 6 AM 11/02/16 05:59 Intake Total 2040 ml Output Total 1015 ml Balance 1025 ml Laboratory Data Labs 24H Laboratory Tests 2 11/01/16 11:29: Bedside Glucose (Misc Panel) 106 11/01/16 16:58: Bedside Glucose (Misc Panel) 104 11/01/16 19:55: Bedside Glucose (Misc Panel) 89 11/02/16 05:47: Bedside Glucose (Misc Panel) 138H FSBS Laboratory Tests Test 11/01/16 11:29 11/01/16 16:58 11/01/16 19:55 11/02/16 05:47 Range/Units Bedside Glucose (Misc Panel) 106 104 89 138 83-110 MG/DL Discharge Medications Scheduled Amlodipine Besylate (Amlodipine Besylate) 10 Mg Tab, 10 MG PO DAILY Aspirin (Aspirin 81) 81 Mg Tab, 81 MG PO DAILY, (Reported) Atorvastatin Calcium (Atorvastatin Calcium) 20 Mg Tab, 20 MG PO DAILY, (Reported ) Docusate Sodium (Colace) 100 Mg Cap, 100 MG PO BID Gabapentin (Gabapentin) 300 Mg Cap, 300 MG PO TID, (Reported) Losartan Potassium (Losartan Potassium) 25 Mg Tab, 25 MG PO DAILY, (Reported) Scheduled PRN (Oxycodone/Acetaminophen 10-325 mg) 1 Tab Tab, 1 TAB PO Q8HP PRN for PAIN, ( Reported) Allergies Coded Allergies: No Known Allergies (Unverified , 10/28/16) FAUSTINO DAVIS PA-C Nov 02, 2016 10:59
[2016-11-02 14:00] VITALS: BP 138/72
== END 2016-11-02 15:05 | disposition home or self-care (01) | DRG 460 ==
LOC: M OR 06:20 → M ICU 21:36 → M MS5PR 10-30 15:33
PROVIDERS: ADMIT Neurological Surgery; ATTEND Neurological Surgery
PROC: 0SR Lower Joints, Replacement (ICD-10-PCS; 2016-10-28)
PROC: 0SB20ZZ Excision of Lumbar Vertebral Disc, Open Approach (ICD-10-PCS; 2016-10-28)
PROC: 01NB0ZZ Release Lumbar Nerve, Open Approach (ICD-10-PCS; 2016-10-28)
PROC: 0SG30J1 Fusion of Lumbosacral Joint with Synthetic Substitute, Posterior Approach, Posterior Column, Open Approach (ICD-10-PCS; principal; 2016-10-28 07:30)
DX: M51.17 Intervertebral disc disorders with radiculopathy, lumbosacral region (principal); M48.07 Spinal stenosis, lumbosacral region; I12.9 Hypertensive chronic kidney disease with stage 1 through stage 4 chronic kidney disease, or unspecified chronic kidney disease; E78.5 Hyperlipidemia, unspecified; N18.3 Chronic kidney disease, stage 3 (moderate); E11.40 Type 2 diabetes mellitus with diabetic neuropathy, unspecified; Z85.47 Personal history of malignant neoplasm of testis; Z92.21 Personal history of antineoplastic chemotherapy; Z79.82 Long term (current) use of aspirin; Z79.899 Other long term (current) drug therapy

== ENCOUNTER → 2016-12-24 | Outpatient (CLI) | payer OTHER ==
[~2016-12-24] MED LIST changes: +AMLO10TA2 PO; +COLA100C5 PO; +D-CA1KIT XX
--- NOTE | 2016-12-24 14:33 | REP ---
Clinical: Spinal stenosis. Pain. Technique: AP, lateral, bilateral oblique and coned-down views of the lumbosacral spine. Findings: The patient is status post laminectomy and posterior fusion at the L4 - S1 levels. Moderate multilevel degenerative changes are appreciated including endplate sclerosis with marginal spurring. No acute fracture / compression injury or subluxation. Impression: Status post laminectomy and posterior fusion appears stable when compared to 10/28/2016. Signed by Magnus Hernandez MD 12/24/2016 02:24 P
== END ==
LOC: M RAD 13:39
PROVIDERS: ATTEND Physician Assistant Surgical
DX: M48.07 Spinal stenosis, lumbosacral region (principal); M43.27 Fusion of spine, lumbosacral region

== ENCOUNTER → 2020-11-25 | Outpatient (CLI) | payer MEDICARE ==
[~2020-11-25] MED LIST changes: -AMLO10TA2 PO; +AMLO1TAB25 PO; -ASPI1TAB PO; +ASPI81TA26 PO; +COVI100V IM; +GASTROGRAFIN SOLUTION 30ML (Q9963) As Ordered ONE; +LOSA25TA14 PO; -LOSA25TA8 PO; +LOSA50TA88 PO; +OXYC10TA3 PO; -OXYC1TAB16 PO
== END ==
LOC: M RAD 15:06
PROVIDERS: ATTEND Internal Medicine Medical Oncology
DX: C34.90 Malignant neoplasm of unspecified part of unspecified bronchus or lung (principal)
CPT/HCPCS: 71250; 74176; Q9963